=== PATIENT | male | born 1995 | race Caucasian/White ===

== ENCOUNTER 2019-05-05 20:02 | Emergency (ER) | payer OTHER ==
[2019-05-05 22:46] VITALS: BP 148/96
== END 2019-05-05 22:46 | disposition left against medical advice (07) ==
LOC: ED 20:02
DX: R11.0 Nausea (principal); R50.9 Fever, unspecified; Z53.21 Procedure and treatment not carried out due to patient leaving prior to being seen by health care provider
CPT/HCPCS: 99281

== ENCOUNTER 2019-05-06 03:07 | Emergency (ER) | payer OTHER ==
[2019-05-06] MEDS ORDERED: NS 0.9% 1000 ML** 1,000 ML IV ONE (04:12)
[2019-05-06] MEDS ORDERED: Ondansetron INJ* 2 MG/ML VIAL IV ONE (04:12)
[2019-05-06] MEDS ORDERED: Ketorolac INJ* 30 MG/ML 1 ML VIAL IV PUSH ONE (04:14)
[2019-05-06 04:58] LABS: ABS Eosinophils 0.1 10^3/ul (0-0.6); ABS Monocytes 0.6 10^3/ul (0-0.8); ABS Neutrophils 4.3 10^3/ul (1.5-7.7); Eosinophil % 1.1 %; Hematocrit 45 % (42-52); Hemoglobin 15.7 g/dL (14.0-18.0); Lymphocyte % 28.4 %; Mean Corpuscular HGB Conc 35 g/dL (31-36); Mean Corpuscular Hemoglobin 32 pg (27-31); Mean Corpuscular Volume 91 fL (80-94); Mean Platelet Volume 7.4 fL (7.4-10.4); Nucleated Red Blood Cells % 0.1; Platelet Count 213 10^3/uL (150-450); Red Blood Count 4.93 10^6 /uL (4.18-5.48); Red Cell Distribution Width 13 % (10-15); White Blood Count 6.9 10^3/uL (3.5-10.8)
--- NOTE | 2019-05-06 05:04 | ED ---
Abdominal Pain/Male - HPI Summary HPI Summary: This pt is a 24 Y/O M presenting to [facility] with a CC of nausea that started on 05/04/19. He stated that the nausea got worse at 05/05/19. He states that he has not been sleeping well due to palpitations in his chest. He states that he has a fever but also stated that he has not taken any medications. He denies any diarrhea, SOB, trouble peeing, and abdominal pain. He states that he drinks twice a week, and smokes tobacco sometimes. He has ho aggravating or alleviating factors. He has no pertinent PMHx. - History of Current Complaint Chief Complaint: EDNauseaVomitDiarrh Stated Complaint: RAPID HR PER PT Time Seen by Provider: 05/06/19 04:12 Hx Obtained From: Patient Onset/Duration: Sudden Onset, Lasting Days, Still Present Timing: Constant Severity Currently: None Pain Intensity: 0 Pain Scale Used: 0-10 Numeric Location: Other - LLQ Radiates: No Aggravating Factor(s): Nothing Alleviating Factor(s): Position Associated Signs And Symptoms: Negative: Fever, Vomiting, Other - POSITIVE SOB - Allergies/Home Medications Allergies/Adverse Reactions: Allergies Allergy/AdvReac Type Severity Reaction Status Date / Time MS Bacitracin [Bacitracin] Allergy BLISTERING Verified 01/14/19 14:07 PMH/Surg Hx/FS Hx/Imm Hx Previously Healthy: Yes Endocrine/Hematology History: Denies: Hx Diabetes Cardiovascular History: Denies: Hx Hypertension, Hx Pacemaker/ICD History: Denies: Hx Dialysis, Hx Renal Disease Sensory History: Denies: Hx Hearing Aid Psychiatric History: Denies: Hx Panic Disorder Infectious Disease History: No Infectious Disease History: Denies: History Other Infectious Disease, Traveled Outside the [place] in Last 30 Days - Family History Known Family History: Positive: Hypertension - Social History Alcohol Use: Occasionally Substance Use Type: Reports: None Smoking Status (MU): Never Smoked Tobacco Review of Systems - ROS Summary Review of Systems Summary: This pt is a 65 Y/O M presenting to [facility] for a CC of lower L abdominal pains. He states that his pain is currently rated an 8/10 in severity. He states that he has not had a BM in 3 days and has had some abdominal bloating. The pt also states that the medication he is supposed to take has not been helping. H denies an appetite and. He state he has a PMHx of liver sclerosis, and an enlarged gall bladder. He states that his pain waxes and wanes and is extremely painful at the after deep breaths. He states that he does not drink. Negative: Chest Pain Negative: Shortness Of Breath All Other Systems Reviewed And Are Negative: Yes Physical Exam - Summary Physical Exam Summary: General: Well-developed, Well-nourished male. No acute distress. HEENT: Normocephalic, Atraumatic. Eyes: Conjuctiva normal, PERRL. Ears: TMs within normal limits. Nares: (-) discharge, (-) erythema. Oropharynx: Clear, mucous membranes moist, (-) exudates. Neck: Soft, FROM, (-) lymphadenopathy, (-) thyromegaly, (-) JVD. Cardiovascular: Normal sinus rhythm, (-) murmur. Lungs: Clear to auscultation bilaterally (-) wheezes, (-) rales, (-) rhonchi. Abdomen: Soft, non-tender, non-distended, (-) organomegaly, normal bowel sounds. Back: (-) CVA tenderness Extremities: No edema. Skin: Warm, dry, (-) rash. Neuro: Alert and oriented x3, no focal deficits. Psychiatric: Mood normal, affect normal, appears slightly anxious. Triage Information Reviewed: Yes Vital Signs On Initial Exam: Initial Vitals Temp Pulse Resp BP Pulse Ox 98.2 F 111 20 156/101 90 05/06/19 03:09 05/06/19 03:09 05/06/19 03:09 05/06/19 03:09 05/06/19 03:09 Vital Signs Reviewed: Yes Diagnostics - Vital Signs Vital Signs Temp Pulse Resp BP Pulse Ox 05/06/19 03:09 98.2 F 111 20 156/101 90 - Laboratory Lab Results: Lab Results 05/06/19 Range/Units 04:49 WBC 6.9 (3.5-10.8) 10^3/uL RBC 4.93 (4.18-5.48) 10^6 /uL Hgb 15.7 (14.0-18.0) g/dL Hct 45 (42-52) % MCV 91 (80-94) fL MCH 32 H (27-31) pg MCHC 35 (31-36) g/dL RDW 13 (10-15) % Plt Count 213 (150-450) 10^3/uL MPV 7.4 (7.4-10.4) fL Neut % (Auto) 61.9 % Lymph % (Auto) 28.4 % [place] % (Auto) 8.0 % Eos % (Auto) 1.1 % Baso % (Auto) 0.6 % Absolute Neuts (auto) 4.3 (1.5-7.7) 10^3/ul Absolute Lymphs (auto) 2.0 (1.0-4.8) 10^3/ul Absolute Monos (auto) 0.6 (0-0.8) 10^3/ul Absolute Eos (auto) 0.1 (0-0.6) 10^3/ul Absolute Basos (auto) 0.0 (0-0.2) 10^3/ul Absolute Nucleated RBC 0.0 10^3/ul Nucleated RBC % 0.1 Result Diagrams: 05/06/19 04:49 05/06/19 04:49 Lab Statement: Any lab studies that have been ordered have been reviewed, and results considered in the medical decision making process. Abdominal Pain Male Course/Dx - Course Assessment/Plan: This pt is a 24 Y/O M presenting to [facility] with a CC of nausea that started on 05/04/19. He stated that the nausea got worse at 05/05/19. He states that he has not been sleeping well due to palpitations in his chest. He states that he has a fever but also stated that he has not taken any medications. His PE found no abnormal findings. His lab results have abnormal findings in urine ketones and MCH. He will be discharged home after receiving fluids. - Diagnoses Provider Diagnoses: Viral syndrome, Stress, Insomnia Discharge ED - Sign-Out/Discharge Documenting (check all that apply): Patient Departure - discharge Patient Received Moderate/Deep Sedation with Procedure: No - Discharge Plan Condition: Stable Disposition: HOME Prescriptions: Ondansetron ODT TAB* [Zofran 4 MG Odt TAB*] 4 mg SL Q6H PRN #10 tab PRN Reason: Nausea/Vomiting Patient Education Materials: Stress (ED), Viral Syndrome (ED), Insomnia (ED) Referrals: Javan Leslie MD [Primary Care Provider] - 2 Days Additional Instructions: PLEASE FOLLOW UP WITH YOUR PRIMARY CARE PROVIDER IN 2-3 DAYS AND RETURN TO THE EMERGENCY DEPARTMENT FOR ANY NEW OR WORSENING SYMPTOMS. - Billing Disposition and Condition Condition: STABLE Disposition: Home - Attestation Statements Document Initiated by Lars: Yes Documenting Scribe: Fran Clark Provider For Whom Lars is Documenting (Include Credential): Candice Wakefield MD Scribe Attestation: IFran, scribed for Candice Wakefield MD on 05/09/19 at 1956. Scribe Documentation Reviewed: Yes Provider Attestation: The documentation as recorded by the Fran german accurately reflects the service I personally performed and the decisions made by me, Candice Wakefield MD Status of Scribe Document: Viewed
[2019-05-06 05:15] LABS: Albumin 4.6 g/dL (3.2-5.2); Albumin/Globulin Ratio 1.5 (1-3); BUN/Creatinine Ratio 12.4 (8-20); Calcium 9.7 mg/dL (8.6-10.3); EGFR African American 116.1 (>60); EGFR Non-African American 95.9 (>60); Potassium 3.9 mmol/L (3.5-5.0); Total Bilirubin 0.8 mg/dL (0.2-1.0); Total Protein 7.6 g/dL (6.4-8.9)
[2019-05-06 05:31] LABS: Urine Appearance Clear; Urine Bilirubin Negative (Negative); Urine Blood Negative (Negative); Urine Color Yellow; Urine Glucose Negative (Negative); Urine Ketones 2+ (Negative); Urine Nitrite Negative (Negative); Urine Protein Negative (Negative); Urine Specific Gravity 1.011 (1.010-1.030); Urine Urobilinogen Negative (Negative)
[2019-05-06] MEDS ORDERED: Ondansetron ODT TAB* 4 MG SL PRN (06:04)
[2019-05-06 07:12] VITALS: BP 119/70
== END 2019-05-06 07:11 | disposition home or self-care (01) ==
LOC: ED 03:07
DX: B34.9 Viral infection, unspecified (principal); F43.9 Reaction to severe stress, unspecified; G47.00 Insomnia, unspecified; Z79.899 Other long term (current) drug therapy; Z88.1 Allergy status to other antibiotic agents
CPT/HCPCS: 36415; 80053; 81003; 82150; 83605; 83690; 85025; 96374; 96375; 99282; A9270-GY; J1885; J2405